=== PATIENT | female | born 1935 | race Caucasian/White ===

== ENCOUNTER → 2020-10-14 | Outpatient (CLI) | payer OTHER, MEDICARE ==
[~2020-10-14] VITALS: Ht 160 cm; Wt 105.4 kg
[~2020-10-14] MED LIST: CALTRATE 600 +1 EAC1 PO; DIOVAN40 MG PO; FOSAMAX 70 MG T70 MG PO; JANTOVEN5 MG PO; LEVO-T75 MCG PO; LIPITOR 40 MG T40 M1 PO; MELOXICAM15 MG PO; NEURONTIN 300M300 M2 PO; OMEPRAZOLE40 MG PO; PRIMIDONE 250M250 MG PO; REQUIP 1 MG TABL1 M1 PO; SOTALOL80 MG PO; VITAMIN D325 MC3 PO
[2020-10-14 10:53] LABS: ABSOLUTE NEUTROPHILS 5.3 thou/uL (1.4-8.2); BASOPHILS 0.8 % (0.0-2.0); HEMATOCRIT 39.6 % (37.0-47.0); HEMOGLOBIN 12.9 gm/dL (12.0-15.0); LYMPHOCYTES 17.1 % (24.0-44.0); MCH 31.2 pg (26.0-34.0); MCHC 32.5 g/dL (28.0-37.0); MCV 95.8 fL (80.0-100.0); MONOCYTES 6.9 % (1.0-8.0); PLATELET COUNT 215 thou/uL (150-400); POLYS 74.2 % (36.0-66.0); RBC 4.13 mil/uL (4.20-5.00); RDW 16.1 % (10.5-14.5); WBC 7.1 thou/uL (4.0-11.0)
[2020-10-14 11:01] VITALS: BP 151/40
[2020-10-14 11:07] LABS: CALCIUM 8.5 mg/dL (8.5-10.1); POTASSIUM 4.6 mmol/L (3.5-5.1)
[2020-10-14 11:08] LABS: APTT 28.4 Seconds (24.5-32.8); INR 1.17; PROTIME 12.7 Seconds (10.5-12.1)
[2020-10-14 11:12] LABS: ALBUMIN 3.2 g/dL (3.4-5.0); TOTAL BILIRUBIN 0.3 mg/dL (0.2-1.0); TOTAL PROTEIN 7.2 g/dL (6.4-8.2)
--- NOTE | 2020-10-19 15:12 | P ---
[facility] [place] [address] PROCEDURE REPORT Name: ROSELYN ROGERS Room #: REG KAITLIN WelchZoraidaHerberth.#: [id number] Admission: 10/14/20 Attend Phys: Sy Judge MD Discharge: Date of : 33 Report #: [id number] THIS REPORT FOR: cc: Darius Berman Jeffrey W. DO Couchonnal, Luis F. MD ~ DOC #: [id number] cc: Darius Berman DO, Dr. Butler Luis F. Couchonnal, MD DATE OF SERVICE: 10/14/2020 PROCEDURE: Biventricular implantable cardioverter defibrillator generator exchange. PREOPERATIVE DIAGNOSIS: Biventricular implantable cardioverter defibrillator at elective replacement indicator. POSTOPERATIVE DIAGNOSIS: Biventricular implantable cardioverter defibrillator at elective replacement indicator. HISTORY: The patient is an 84-year-old female with history of cardiomyopathy, status post prior [employer] biventricular ICD implantation as well as atrial fibrillation whose biventricular ICD is currently at the elective replacement interval. Her LV lead is known to be nonfunctional and is connected to her device, but has been turned off. ANESTHESIA: The patient underwent MAC anesthesia with no anesthesia related complications. DESCRIPTION OF PROCEDURE: The patient underwent informed consent. We discussed the details of the procedure including the risks, which include but not limited to bleeding, infection, vascular damage, cardiac perforation, and need for possible lead revisions. She understood these risks and is willing to proceed. The patient was brought to the EP laboratory in fasting and unsedated state, prepped and draped in a sterile fashion. She received IV antibiotics prior to initiation of the procedure. Next, I injected lidocaine below the prior incision site. Incision was made. Chronic pocket was entered and the old device was removed from the pocket. The leads were connected to the new device, was tested and found to be functioning normally. The LV lead was turned to the off position, but I decided on connecting it to the biventricular ICD, so that she can still have MRIs in the future. The pocket was irrigated with vancomycin and then closed in two layers using 2-0 for the deep layer, 3-0 for the middle layer and surgical glue was placed to outer skin layer. The patient awoke neurologically and hemodynamically intact. No complications. No significant [address] [address] PROCEDURE REPORT Name: ROSELYN ROGERS Room #: REG KAITLIN Michel.#: [id number] Admission: 10/14/20 Attend Phys: Sy Judge MD Discharge: Date of : 33 Report #: [id number] bleeding. The explanted device was a [employer], model #154881I, serial #[id number]. The new device was a [employer] model #789300N, serial #[id number]. ____ right ventricular and left ventricular leads are all [employer] inspector is all implanted on 08/24/2011. The atrial lead is a 2088, 52 cm, serial #[id number]. The RV lead is a 7122, serial #[id number]. The LV lead was a 1458Q, 86 cm, serial #[id number]. Atrial lead demonstrated P-waves of 1.8 millivolts, pacing impedance of 450 ohms, and pacing threshold 0.75 volts at 0.5 milliseconds. The RV lead demonstrated R-waves of 6.8 millivolts, pacing impedance of 380 ohms, and pacing threshold 0.75 volts at 0.5 milliseconds. The device was programmed to DDDR 60-115 mode. The VT zone was set at 170-214 beats per minute with ATP x 3 followed by max output shocks. The VF zone was set at greater than 214 beats per minute with ATP x 1 followed by max output shocks. CONCLUSIONS: 1. Successful biventricular implantable cardioverter defibrillator generator exchange. 2. Satisfactory atrial and ventricular pacing and sensing thresholds. Sy Judge MD [facility] <ELECTRONICALLY SIGNED> By: Sy Judge MD 10/19/20 1512 [id number] Sy Judge MD /nt
== END | disposition home or self-care (01) ==
LOC: CATH 09:08
PROVIDERS: ATTEND Internal Medicine Cardiovascular Disease
DX: Z45.02 Encounter for adjustment and management of automatic implantable cardiac defibrillator (principal); I42.9 Cardiomyopathy, unspecified; I48.91 Unspecified atrial fibrillation; I48.92 Unspecified atrial flutter; I11.0 Hypertensive heart disease with heart failure; I50.9 Heart failure, unspecified; K21.9 Gastro-esophageal reflux disease without esophagitis; E03.9 Hypothyroidism, unspecified; E66.9 Obesity, unspecified; Z98.890 Other specified postprocedural states; Z79.899 Other long term (current) drug therapy
CPT/HCPCS: 62110; 62900; 70005